=== PATIENT | female | born 1975 | race Caucasian/White ===

== ENCOUNTER → 2018-10-14 | Outpatient (CLI) | payer BC ==
[2005-09-21 07:36] VITALS: TEMP 98.8
[~2018-10-14] MED LIST: COLACE 100100 MG/CAP PO; IBU-4400 MG PO; MOTRIN 600600 MG/TAB PO; PERCOCET 325 MG1 TA2 PO; PRENATAL1 TA1 PO; PROTONIX20 MG PO; RANITIDINE HYD150 MG PO; TYLENOL EXTRA500 M1 PO
== END ==
LOC: MC.RAD 13:00
DX: Z12.31 Encounter for screening mammogram for malignant neoplasm of breast (principal); Z80.3 Family history of malignant neoplasm of breast

== ENCOUNTER → 2020-12-23 | Outpatient (CLI) | payer BC ==
[2005-09-21 07:36] VITALS: TEMP 98.8
== END ==
LOC: MC.RAD
DX: Z12.31 Encounter for screening mammogram for malignant neoplasm of breast (principal)

== ENCOUNTER → 2024-06-05 | Outpatient (CLI) | payer BC ==
[2005-09-21 07:36] VITALS: TEMP 98.8
== END ==
LOC: MC.RAD 09:50
DX: N60.11 Diffuse cystic mastopathy of right breast (principal); N63.10 Unspecified lump in the right breast, unspecified quadrant